=== PATIENT | female | born 1960 | race Caucasian/White ===

== ENCOUNTER 2017-06-27 09:24 | Emergency (ER) | payer BC ==
--- OUTSIDE RECORDS SUMMARY | 2017-06-27 10:00 | XMS REPORT ---
:1960 External Reference #:[id number] Author Organization [facility] 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 Infrastructure Engineer Unavailable Maya Mcdonough FNP Primary Care Physician Unavailable Payers Type Date Identification Numbers Payment Provider Subscriber Commercial Policy Number: [id number] Mya Harris PayID: [id number] [address] [address] [place] [address] Medigap Part B Expires: 2012 Policy Number: Mya Harris [id number] PayID: [id number] [address] [address] [place] [address] Medigap Part B Expires: 2011 Policy Number: Group Insurance Jhonatan Harris [id number] PayID: [id number] [address] [place] [address] Problems Date Description Provider Status Onset: 09/18/2011 Palpitations Jc Borden MD, PhD Active Onset: 05/05/2012 Paroxysmal supraventricular Aisha A Grella, ANP Active tachycardia Onset: 04/26/2013 Chest pain Aisha A Grella, ANP Active Onset: 08/09/2015 Paroxysmal atrial fibrillation Aisha A Grella, ANP Active Onset: 08/09/2015 Transient cerebral ischemia Aisha A Grella, ANP Active Onset: 08/09/2015 Mixed hyperlipidemia Aisha A Grella, ANP Active Onset: 09/01/2015 Orthostatic hypotension CALIN Guajardo Active Onset: 11/20/2015 Obstructive sleep apnea syndrome CALIN Guajardo Active Onset: 11/20/2015 Obesity CALIN Guajardo Active Family History Date Family Member(s) Problem(s) Comments Father Diabetes : (age 72 Years) Mother due to Congestive Heart Failure Mother due to COPD () First Sister Ovarian Cancer Social History Type Date Description Comments Lives With Diet Patient follows no dietary restrictions Occupation Currently Working Cigarette Use 1999 Quit Cigarette Use Pack Years - 20 ETOH Use Occasionally consumes alcohol Smoking Patient is a former smoker Daily Caffeine Patient consumes minimal amounts of caffeine Allergies, Adverse Reactions, Alerts Date Description Reaction Status Severity Comments 08/13/2011 Penicillin hives active 05/22/2015 Levaquin active Medications Medication Date Status Form Strength Qnty SIG Indications Ordering Provider Atenolol Active Tablets 50mg 30tabs 1 tab by I47.1 Emma 8 mouth [place] every day BORIS Rivas, BRAID CUTTER I48.0 I10 Magnesium 10/12/2016 Active Tablets 400(241.3mg) 180tabs Take 1 Tablet Emma Oxide mg By Mouth Twice Simon[place] A Day BORIS Rivas, BRAID CUTTER Nexium Active Capsules 40mg 30caps 1 po qd Unknown Wellbutrin Active Tablets 150mg 1 po bid Unknown SR ER 12HR Estrace Active Cream 0.1mg/GM insert Unknown one-half applicatorful vaginally once to twice per week as needed Metformin Active Tablets 500mg 1 po daily Unknown HCL Flecainide Active Tablets 100mg 180tabs take 1 tablet Sameer M. Acetate by mouth every Davidenko, 12 hours M.D., [facility] Eliquis Active Tablets 5mg 180tabs Take 1 Tablet Sameer M. By Mouth Twice Davidenko, Daily M.D., [facility] Atenolol 04/06/2016 Hx Tablets 25mg 90tabs take 1 tablet I Sameer M. - by mouth every 4 Davidenko, 06/24/2017 evening 7 M.D., [facility] . 1 I48.0 I10 Midodrine HCL 08/30/2015 Hx Tablets 2.5mg 60tabs 1 tab by I95.1 [place] mouth twice MD Rohit a day at 07 and 3 pm. Propafenone HCL 08/06/2015 Hx Caps ER 225mg 60caps 1 by mouth [place] ER 12HR twice a day MD Rohit Xarelto 08/06/2015 Hx Tablets 20mg 30tabs 1 by mouth [place] every day MD Rohit Magnesium Oxide 07/24/2015 Hx Tablets 400(240Mg 60tabs 1 by mouth [place] ) mg twice daily MD Rohit Atenolol 05/22/2015 - Hx Tablets 25mg 90tabs 1 by mouth I95.1 [place] 02/21/2016 every day MD Rohit Atenolol 12/02/2011 - Hx Tablets 25mg 90tabs Take 2 I47.1 Jc L 04/06/2016 Tablet By Suha, Mouth Once , PhD Daily, Take First Dose At Night as Directed I48.0 Seroquel Hx Tablets 100mg 1 Tab po hs Unknown Wellbutrin SR Hx Tablets ER 150mg 60ta 1 po bid Unknown 12HR bs Multivitamins Hx Tablets 1 po qd Unknown Plavix Hx Tablets 75mg 90ta 1 po qd Unknown bs Cymbalta Hx Caps DR Part 30mg 1 cap po qd Unknown Multivitamins Hx Capsules 1 by mouth Unknown every day Magnesium-Oxide Hx Tablets 400(241.3 180t 1 by mouth Emma mg) mg abs twice a day Luli Rivas, MSN, BRAID CUTTER Klonopin Hx Tablets 0.5mg one po tid nick Contrerasn Flecainide Hx Tablets 100mg 60ta Take 1 Edsno Contreras bs Tablet By Mouth Every 12 Hours Meloxicam Hx Tablets 7.5mg as directed Unknown 1 po daily Atenolol - Hx Tablets 25mg Take 1/2 I48 Unknown 02/21/2016 Tab By .0 Mouth Every Day Flaxseed Oil Hx Capsules 1000mg 1 po qd Unknown Zantac Hx Tablets 150mg 1 tab every Unknown day every morning Vital Signs Date Vital Result Comment 06/24/2017 BP Systolic Sitting Left Arm 142 mmHg BP Diastolic Sitting Left Arm 80 mmHg Heart Rate 72 /min Respiratory Rate 18 /min Height 63 inches 5'3" Weight 231.00 lb BMI (Body Mass Index) 40.9 kg/m2 BSA (Body Surface Area) 2.06 m2 [place] body weight in kilograms 52 05/25/2017 BP Systolic Sitting Left Arm 118 mmHg BP Diastolic Sitting Left Arm 84 mmHg Heart Rate 64 /min Respiratory Rate 16 /min Height 63 inches 5'3" Weight 232.00 lb BMI (Body Mass Index) 41.1 kg/m2 BSA (Body Surface Area) 2.06 m2 [place] body weight in kilograms 52 10/19/2016 BP Systolic Sitting Left Arm 110 mmHg BP Diastolic Sitting Left Arm 74 mmHg Heart Rate 68 /min Respiratory Rate 16 /min Height 63 inches 5'3" Weight 224.00 lb BMI (Body Mass Index) 39.7 kg/m2 BSA (Body Surface Area) 2.03 m2 [place] body weight in kilograms 52 04/17/2016 BP Systolic Sitting Left Arm 122 mmHg BP Diastolic Sitting Left Arm 78 mmHg Heart Rate 77 /min Respiratory Rate 16 /min Height 63 inches 5'3" Weight 216.00 lb BMI (Body Mass Index) 38.3 kg/m2 BSA (Body Surface Area) 2.00 m2 04/06/2016 BP Systolic Sitting Left Arm 118 mmHg BP Diastolic Sitting Left Arm 84 mmHg Heart Rate 61 /min Respiratory Rate 16 /min Height 63 inches 5'3" Weight 216.00 lb BMI (Body Mass Index) 38.3 kg/m2 BSA (Body Surface Area) 2.00 m2 02/21/2016 BP Systolic Sitting Left Arm 120 mmHg BP Diastolic Sitting Left Arm 86 mmHg Heart Rate 56 /min Respiratory Rate 16 /min Height 63 inches 5'3" Weight 214.00 lb BMI (Body Mass Index) 37.9 kg/m2 BSA (Body Surface Area) 1.99 m2 11/19/2015 BP Systolic Sitting Left Arm 118 mmHg BP Diastolic Sitting Left Arm 65 mmHg Heart Rate 68 /min Respiratory Rate 16 /min Height 63 inches 5'3" Weight 219.00 lb BMI (Body Mass Index) 38.8 kg/m2 BSA (Body Surface Area) 2.01 m2 10/09/2015 BP Systolic Sitting Left Arm 154 mmHg BP Diastolic Sitting Left Arm 80 mmHg Heart Rate 74 /min Height 63 inches 5'3" Weight 222.00 lb BMI (Body Mass Index) 39.3 kg/m2 BSA (Body Surface Area) 2.02 m2 [place] body weight in kilograms 52 08/30/2015 BP Systolic Sitting Left Arm 112 mmHg standing 100/68 BP Diastolic Sitting Left Arm 72 mmHg standing 100/68 Heart Rate 82 /min Respiratory Rate 16 /min Height 63 inches 5'3" Weight 219.00 lb BMI (Body Mass Index) 38.8 kg/m2 BSA (Body Surface Area) 2.01 m2 [place] body weight in kilograms 52 08/08/2015 BP Systolic Sitting Left Arm 106 mmHg BP Diastolic Sitting Left Arm 80 mmHg Heart Rate 72 /min Respiratory Rate 16 /min Height 63 inches 5'3" Weight 215.00 lb BMI (Body Mass Index) 38.1 kg/m2 BSA (Body Surface Area) 1.99 m2 07/24/2015 BP Systolic Sitting Right Arm 138 mmHg BP Diastolic Sitting Right Arm 84 mmHg Heart Rate 67 /min Respiratory Rate 16 /min Height 63 inches 5'3" Weight 220.00 lb BMI (Body Mass Index) 39.0 kg/m2 BSA (Body Surface Area) 2.01 m2 05/22/2015 BP Systolic Sitting Right Arm 136 mmHg BP Diastolic Sitting Right Arm 88 mmHg Heart Rate 80 /min Respiratory Rate 16 /min Height 63 inches 5'3" Weight 221.00 lb BMI (Body Mass Index) 39.1 kg/m2 BSA (Body Surface Area) 2.02 m2 05/25/2013 BP Systolic Sitting Right Arm 110 mmHg BP Diastolic Sitting Right Arm 82 mmHg Heart Rate 60 /min Respiratory Rate 16 /min Height 63 inches 5'3" Weight 223.00 lb BMI (Body Mass Index) 39.5 kg/m2 BSA (Body Surface Area) 2.03 m2 04/26/2013 BP Systolic Sitting Left Arm 124 mmHg BP Diastolic Sitting Left Arm 74 mmHg Heart Rate 60 /min Respiratory Rate 16 /min Height 63 inches 5'3" Weight 225.00 lb BMI (Body Mass Index) 39.9 kg/m2 BSA (Body Surface Area) 2.03 m2 09/19/2012 BP Systolic Sitting Right Arm 126 mmHg BP Diastolic Sitting Right Arm 70 mmHg Heart Rate 72 /min Respiratory Rate 16 /min Height 63 inches 5'3" Weight 226.00 lb BMI (Body Mass Index) 40.0 kg/m2 BSA (Body Surface Area) 2.04 m2 05/11/2012 BP Systolic Sitting Left Arm 120 mmHg BP Diastolic Sitting Left Arm 71 mmHg Heart Rate 56 /min Height 63 inches 5'3" Weight 220.00 lb BMI (Body Mass Index) 39.0 kg/m2 BSA (Body Surface Area) 2.01 m2 05/05/2012 BP Systolic Sitting Left Arm 122 mmHg BP Diastolic Sitting Left Arm 72 mmHg Heart Rate 64 /min Respiratory Rate 16 /min Height 63 inches 5'3" Weight 222.00 lb BMI (Body Mass Index) 39.3 kg/m2 03/03/2012 BP Systolic Sitting Right Arm 118 mmHg BP Diastolic Sitting Right Arm 84 mmHg Heart Rate 72 /min Respiratory Rate 16 /min Height 63 inches 5'3" Weight 219.00 lb BMI (Body Mass Index) 38.8 kg/m2 12/02/2011 BP Systolic Sitting Right Arm 140 mmHg BP Diastolic Sitting Right Arm 92 mmHg Heart Rate 80 /min Respiratory Rate 16 /min Height 63 inches 5'3" Weight 213.00 lb BMI (Body Mass Index) 37.7 kg/m2 09/18/2011 BP Systolic Sitting Right Arm 132 mmHg BP Diastolic Sitting Right Arm 86 mmHg Heart Rate 67 /min Respiratory Rate 16 /min Height 63 inches 5'3" Weight 209.00 lb BMI (Body Mass Index) 37.0 kg/m2 Results Test Date Test Result H/L Range Note Lymphocytes/leuk NFr 05/10/2017 Lymphocytes/leuk NFr 38.0 20.0-42.0 Bld Auto Bld Auto Monocytes/leuk NFr Bld 05/10/2017 Monocytes/leuk NFr Bld 5.5 4.3-13.2 Auto Auto Neutrophils # Bld Auto 05/10/2017 Neutrophils # Bld Auto 5.28 1.8-7.0 Neutrophils/leuk NFr 05/10/2017 Neutrophils/leuk NFr 54.1 40.4-72.8 Bld Auto Bld Auto Potassium SerPl-sCnc 05/10/2017 Potassium SerPl-sCnc 3.7 3.5-5.1 RDW RBC Auto 05/10/2017 RDW RBC Auto 44.8 3-47 RDW RBC Auto-Rto 05/10/2017 RDW RBC Auto-Rto 13.1 11.7-14.4 Serum carbon dioxide 05/10/2017 Serum carbon dioxide 30 21-32 measurement measurement Serum or plasma albumin 05/10/2017 Serum or plasma 3.7 3.4-5.0 measurement albumin measurement (mass/volume) (mass/volume) Serum or plasma 05/10/2017 Serum or plasma 68 45-117 alkaline phosphatase alkaline phosphatase measurement ( measurement (enzymatic activity/volume) Serum or plasma 05/10/2017 Serum or plasma 13 Low 15-37 aspartate aspartate aminotransferase aminotransferase measure measurement (enzymatic activity/volume) Serum or plasma calcium 05/10/2017 Serum or plasma 9.0 8.5-10.1 measurement calcium measurement (mass/volume) (mass/volume) Serum or plasma 05/10/2017 Serum or plasma 79 26-192 creatine kinase creatine kinase measurement (enzym measurement (enzymatic activity/volume) Serum or plasma 05/10/2017 Serum or plasma 0.7 0.6-1.3 creatinine measurement creatinine measurement (mass/volum (mass/volume) Serum or plasma glucose 05/10/2017 Serum or plasma 117 High 74-106 measurement glucose measurement (mass/volume) (mass/volume) Serum or plasma protein 05/10/2017 Serum or plasma 7.7 6.4-8.2 measurement protein measurement (mass/volume) (mass/volume) Serum or plasma total 05/10/2017 Serum or plasma total 0.3 0.2-1.0 bilirubin measurement bilirubin measurement (mass/ (mass/volume) Serum or plasma urea 05/10/2017 Serum or plasma urea 12 7-18 nitrogen measurement nitrogen measurement (mass/vo (mass/volume) Serum sodium 05/10/2017 Serum sodium 140 136-145 measurement measurement Capillary blood glucose 05/10/2017 Capillary blood 128 High 70-110 measurement by glucose measurement by glucometer glucometer (mass/volume) Alt SerPl-cCnc 05/10/2017 Alt SerPl-cCnc 24 12-78 Albumin/Glob SerPl 05/10/2017 Albumin/Glob SerPl 0.9 Anion Gap SerPl-sCnc 05/10/2017 Anion Gap SerPl-sCnc 7 Low 8-16 Automated blood 05/10/2017 Automated blood 0.03 0.0-0.1 basophil count basophil count (count/volume) (count/volume) Automated blood 05/10/2017 Automated blood 0.21 0.0-0.5 eosinophil count eosinophil count Automated blood 05/10/2017 Automated blood 38.8 36.0-46.1 hematocrit (volume hematocrit (volume fraction) fraction) Automated blood 05/10/2017 Automated blood 3.72 1.0-4.0 lymphocyte count lymphocyte count (number/volume) (number/volume) Automated blood 05/10/2017 Automated blood 281 155-360 platelet count platelet count Automated blood 05/10/2017 Automated blood 9.6 8.9-12.4 platelet mean volume platelet mean volume measurement measurement Automated erythrocyte 05/10/2017 Automated erythrocyte 32.6 25.9-32.7 mean corpuscular mean corpuscular hemoglobin hemoglobin (mass per erythrocyte) Globulin Ser Calc-mCnc 05/10/2017 Globulin Ser Calc-mCnc 4.0 1.9-4.3 Eosinophil/leuk NFr Bld 05/10/2017 Eosinophil/leuk NFr 2.1 0.0-6.6 Auto Bld Auto Chloride SerPl-sCnc 05/10/2017 Chloride SerPl-sCnc 103 98-107 Blood monocytes 05/10/2017 Blood monocytes 0.54 0.3-0.9 automated count automated count (number/volume) (number/volume) Blood leukocytes 05/10/2017 Blood leukocytes 9.8 3.1-10.7 automated count automated count (number/volume) (number/volume) Blood hemoglobin 05/10/2017 Blood hemoglobin 13.0 11.6-15.8 measurement measurement (mass/volume) (mass/volume) Blood erythrocytes 05/10/2017 Blood erythrocytes 3.99 3.90-5.40 automated count automated count (number/volume) (number/volume) Basophils/leuk NFr Bld 05/10/2017 Basophils/leuk NFr Bld 0.3 0.0-1.1 Auto Auto BUN/Creat SerPl 05/10/2017 BUN/Creat SerPl 17.1 Automated erythrocyte 05/10/2017 Automated erythrocyte 97.2 80.9-99.0 mean corpuscular volume mean corpuscular volume Automated erythrocyte 05/10/2017 Automated erythrocyte 33.5 30.8-34.3 mean corpuscular mean corpuscular hemoglobin hemoglobin concentration measurement (mass/volume) LDL Cholesterol Profile 10/19/2016 Cholesterol 201 mg/dL High <200 1, 2 Triglycerides 258 mg/dL High <150 1, 3 HDL Cholesterol 54 mg/dL >40 1, 4 LDL-Cholesterol 95 mg/dL < 100 1, 5 Basic Metabolic Panel 10/19/2016 Glucose 110 mg/dL High 74-106 1 BUN 17 mg/dL 7-18 1 Creatinine 0.7 mg/dL 0.6-1.3 1 Glom Filtration Rate, Estimate >60 mL/min >60 1 If >60 mL/min >60 1, 6 BUN/Creat 24.2 ratio 1 Sodium 142 mmol/L 136-145 1 Potassium 4.2 mmol/L 3.5-5.1 1 Chloride 107 mmol/L 98-107 1 Carbon Dioxide 27 mmol/L 21-32 1 Anion Gap 8 mEq/L 8-16 1 Calcium 8.8 mg/dL 8.5-10.1 1 LDL Cholesterol Profile 05/01/2016 Cholesterol 231 mg/dL High <200 7, 8 Triglycerides 217 mg/dL High <150 7, 9 HDL Cholesterol 54 mg/dL >40 7, 10 LDL-Cholesterol 134 mg/dL < 100 7, 11 Liver Function Tests 05/01/2016 Total Protein 7.4 g/dL 6.4-8.2 7 Albumin 3.6 g/dL 3.4-5.0 7 Globulin 3.8 g/dL 1.9-4.3 7 Alb/Glob 0.9 ratio 7 Bilirubin,Total 0.4 mg/dL 0.2-1.0 7 Bilirubin,Direct < 0.1 mg/dL 0.0-0.2 7 Bilirubin,Indirect 0.3 mg/dL 0.0-0.9 7 Sgot/Ast 12 U/L Low 15-37 7, 12 SGPT/Alt 29 U/L 12-78 7 Alkaline Phosphatase 71 U/L 45-117 7 CBS W/Automated Diff 05/01/2016 White Blood Count 7.8 K/uL 3.1-10.7 7 Red Blood Count 4.31 M/uL 3.90-5.40 7 Hemoglobin 13.8 gm/dL 11.6-15.8 7 Hematocrit 40.7 % 36.0-46.1 7 Mean Cell Volume 94.4 fl 80.9-99.0 7 Mean Corpuscular HGB 32.0 pg 25.9-32.7 7 Mean Corpuscular HGB Conc 33.9 g/dL 30.8-34.3 7 Platelet Count 324 K/uL 150-400 7 Red Cell Distri Width SD 42.6 fl 3-47 7 Red Cell Distri Width %CV 12.7 % 11.7-14.4 7 Mean Platelet Volume 9.9 fL 8.9-12.4 7 Neut% 57.9 % 40.4-72.8 7 Lymph % 33.5 % 20.0-42.0 7 Edmunds % 5.5 % 4.3-13.2 7 Eo% 2.7 % 0.0-6.6 7 Bas% 0.4 % 0.0-1.1 7 Neut# 4.52 K/uL 1.8-7.0 7 Lymph # 2.61 K/uL 1.0-4.0 7 Edmunds # 0.43 K/uL 0.3-0.9 7 Eos # 0.21 K/uL 0.0-0.5 7 Baso # 0.03 K/uL 0.0-0.1 7 Comprehensive Metabolic Panel 02/21/2016 Glucose 118 mg/dL High 74-106 13 BUN 16 mg/dL 7-18 13 Creatinine 0.8 mg/dL 0.6-1.3 13 Glom Filtration Rate, Estimate >60 mL/min >60 13 If >60 mL/min >60 13, 14 BUN/Creat 20.0 ratio 13 Sodium 142 mmol/L 136-145 13 Potassium 4.2 mmol/L 3.5-5.1 13 Chloride 104 mmol/L 98-107 13 Carbon Dioxide 29 mmol/L 21-32 13 Anion Gap 9 mEq/L 8-16 13 Calcium 8.7 mg/dL 8.5-10.1 13 Total Protein 7.7 g/dL 6.4-8.2 13 Albumin 3.8 g/dL 3.4-5.0 13 Globulin 3.9 g/dL 1.9-4.3 13 Alb/Glob 1.0 ratio 13 Bilirubin,Total 0.4 mg/dL 0.2-1.0 13 Sgot/Ast 13 U/L Low 15-37 13, 15 SGPT/Alt 25 U/L 12-78 13 Alkaline Phosphatase 72 U/L 45-117 13 Laboratory test finding 02/21/2016 Magnesium 2.2 mg/dL 1.8-2.4 13 Glycohemoglobin A1c 02/21/2016 Glycohemoglobin (A1c) 5.7 % 4.2-6.3 13, 16 eAG 117 mg/dL 13 Nocturnal Oximetry 11/28/2015 Low Oximetry 85 % Low 93-98 17 Fio2 21 21-100 17 Heart Rate 76 BPM 17 Duration Of Study 517 MINUTES 17 Total Time Below 88% 3.3 MINUTES 17 Continuous Oximetry 11/28/2015 Oximetry 96 % 93-98 17 Fio2 21 21-100 17 Heart Rate 78 BPM 17 Patient Status RESTING 17 Laboratory test finding 08/05/2015 Anion Gap 9 8-16 BUN/Creatinine Ratio 17.1 Blood Urea Nitrogen 12 7-18 Calcium Level 9.0 8.5-10.1 Carbon Dioxide Level 28 21-32 Chloride Level 104 98-107 Creatinine 0.7 0.6-1.3 Glucose Screen 124 High 74-106 Hematocrit 42.6 36.0-46.1 Hemoglobin 14.5 11.6-15.8 Magnesium Level 2.2 1.8-2.4 Mean Corpuscular Hemoglobin 32.4 25.9-32.7 Mean Corpuscular Hemoglobin Concent 34.0 30.8-34.3 Mean Corpuscular Volume 95.1 80.9-99.0 Mean Platelet Volume 9.8 8.9-12.4 Platelet Count 276 155-360 Potassium Level 4.0 3.5-5.1 RDW Coefficient of Variation 12.6 11.7-14.4 Red Blood Count 4.48 3.90-5.40 Sodium Level 141 136-145 White Blood Count 8.5 3.1-10.7 Laboratory test finding 08/04/2015 Urine Bacteria Few None Seen Urine Bilirubin Negative Negative Urine Blood Negative Negative Urine Clarity Clear Clear Urine Color Yellow Yellow Urine Culture No Growth Urine Epithelial Cells Many None Seen Urine Glucose (Ua) Negative Negative Urine Ketones Negative Negative Urine Leukocyte Esterase Large High Negative Urine Nitrite Negative Negative Urine Protein Negative Negative Urine RBC None Seen 0-2 Urine Specific [place] 1.015 1.010-1.030 Urine Urobilinogen 0.2 0.2-1.0 Urine pH 7.0 6.5-7.5 Laboratory test finding 08/03/2015 Estimated Average Glucose (eAG) 126 Hemoglobin A1c 6.0 4.2-6.3 Laboratory test finding 08/03/2015 Alanine Aminotransferase (Alt/SGPT) 35 12-78 Albumin 3.6 3.4-5.0 Albumin/Globulin Ratio 1.0 Alkaline Phosphatase 72 45-117 Aspartate Amino Transf (Ast/Sgot) 9 Low 15-37 Basophils # (Auto) 0.03 0.0-0.1 Basophils (%) (Auto) 0.3 0.0-1.1 Cholesterol Level 187 <200 Eosinophils # (Auto) 0.23 0.0-0.5 Eosinophils (%) (Auto) 2.5 0.0-6.6 Globulin 3.7 1.9-4.3 HDL Cholesterol 49 >40 LDL Cholesterol, Calculated 106 < 100 Lymphocytes # (Auto) 3.56 1.8-7.0 Lymphocytes (%) (Auto) 38.1 17.0-46.1 Monocytes # (Auto) 0.50 0.3-0.9 Monocytes (%) (Auto) 5.3 4.3-13.2 Neutrophils # (Auto) 5.03 1.8-7.0 Neutrophils (%) (Auto) 53.8 40.4-72.8 Red Cell Distribution Width 41.9 3-47 Thyroid Stimulating Hormone (TSH) 1.24 0.30-4.20 Total Bilirubin 0.5 0.2-1.0 Total Creatine Kinase 54 26-192 Total Protein 7.3 6.4-8.2 Triglycerides Level 160 High <150 Laboratory test 08/02/2015 Urine Culture Organism: Urethral finding Ligia Laboratory test 05/22/2015 Thyroid Stimulating 1.08 0.36-3.7 finding Hormone (TSH) 4 Laboratory test 05/20/2015 Alanine Aminotransferase 35 12-78 finding (Alt/SGPT) Albumin 3.6 3.4-5.0 Albumin/Globulin Ratio 1.0 Alkaline Phosphatase 71 45-117 Anion Gap 8 8-16 Aspartate Amino Transf (Ast/Sgot) 13 Low 15-37 BUN/Creatinine Ratio 18.5 Basophils # (Auto) 0.04 0.0-0.1 Basophils (%) (Auto) 0.5 0.0-1.1 Blood Urea Nitrogen 13 7-18 Calcium Level 8.2 Low 8.5-10.1 Carbon Dioxide Level 29 21-32 Chloride Level 104 98-107 Creatinine 0.7 0.6-1.3 Eosinophils # (Auto) 0.21 0.0-0.5 Eosinophils (%) (Auto) 2.8 0.0-6.6 Globulin 3.6 1.9-4.3 Glucose Screen 114 High 74-106 Hematocrit 38.0 36.0-46.1 Hemoglobin 13.1 11.6-15.8 Lymphocytes # (Auto) 3.44 1.8-7.0 Lymphocytes (%) (Auto) 46.1 17.0-46.1 Mean Corpuscular Hemoglobin 32.1 25.9-32.7 Mean Corpuscular Hemoglobin Concent 34.5 High 30.8-34.3 Mean Corpuscular Volume 93.1 80.9-99.0 Mean Platelet Volume 9.3 8.9-12.4 Monocytes # (Auto) 0.52 0.3-0.9 Monocytes (%) (Auto) 7.0 4.3-13.2 Neutrophils # (Auto) 3.26 1.8-7.0 Neutrophils (%) (Auto) 43.6 40.4-72.8 Platelet Count 253 155-360 Potassium Level 3.7 3.5-5.1 RDW Coefficient of Variation 12.4 11.7-14.4 Red Blood Count 4.08 3.90-5.40 Red Cell Distribution Width 41.5 3-47 Sodium Level 141 136-145 Total Bilirubin 0.3 0.2-1.0 Total Protein 7.2 6.4-8.2 White Blood Count 7.5 3.1-10.7 1 E78.2 I48.0 2 Reference Guidelines*: Desirable: ........... < 200 mg/dL Borderline High: ..... 200-239 mg/dL High: ................ >=240 mg/dL * The National Cholesterol Education Program (NCEP) 3 Reference Guidelines*: Normal: ............. < 150 mg/dL Borderline High: .... 150-199 mg/dL High: ............... 200-499 mg/dL Very High: .......... > 500 mg/dL * Source: National Cholesterol Education Program (NCEP) 4 Reference Guidelines*: Low HDL: ..... < 40 mg/dL Normal: ..... 40-60 mg/dL Desirable: ... > 60 mg/dL *The National Cholesterol Education Program(NCEP) 5 Reference Guidelines*: Optimal:........... <100 mg/dL Near Optimal....... 100-129 mg/dL Borderline High.... 130-159 mg/dL High............... 160-189 mg/dL Very High.......... >=190 mg/dL * Source: National Cholesterol Education Program (NCEP) 6 Note: Persistent reduction for 3 months or more in an eGFR <60 mL/min/1.73 m2 defines CKD. Patients with eGFR values >/=60 mL/min/1.73 m2 may also have CKD if evidence of persistent proteinuria is present. The original MDRD equation for estimated GFR is not valid for patients less than 18 years of age. Additional information may be found at www.kdoqi.org. 7 E78.2,I48.0 8 Reference Guidelines*: Desirable: ........... < 200 mg/dL Borderline High: ..... 200-239 mg/dL High: ................ >=240 mg/dL * The National Cholesterol Education Program (NCEP) 9 Reference Guidelines*: Normal: ............. < 150 mg/dL Borderline High: .... 150-199 mg/dL High: ............... 200-499 mg/dL Very High: .......... > 500 mg/dL * Source: National Cholesterol Education Program (NCEP) 10 Reference Guidelines*: Low HDL: ..... < 40 mg/dL Normal: ..... 40-60 mg/dL Desirable: ... > 60 mg/dL *The National Cholesterol Education Program(NCEP) 11 Reference Guidelines*: Optimal:........... <100 mg/dL Near Optimal....... 100-129 mg/dL Borderline High.... 130-159 mg/dL High............... 160-189 mg/dL Very High.......... >=190 mg/dL * Source: National Cholesterol Education Program (NCEP) 12 Values below the stated reference ranges of AST and ALT can be seen in normal populations. Clinical correlation is suggested. 13 I48.0 14 Note: Persistent reduction for 3 months or more in an eGFR <60 mL/min/1.73 m2 defines CKD. Patients with eGFR values >/=60 mL/min/1.73 m2 may also have CKD if evidence of persistent proteinuria is present. The original MDRD equation for estimated GFR is not valid for patients less than 18 years of age. Additional information may be found at www.kdoqi.org. 15 Values below the stated reference ranges of AST and ALT can be seen in normal populations. Clinical correlation is suggested. 16 Elevated levels of HbA1c suggest the need for more aggressive treatment of glycemia. The [place] [employer] recommends that a primary goal of therapy should be a HbA1c of <7% and that physicians should re-evaluate the treatment regimen in patients with HbA1c values consistently >8%. 17 OBSTRUCTIVE SLEEP APNEA Procedures Date CPT Code Description Status 06/17/2017 37024 Stress Test Interpre And Report Only Completed 06/17/2017 05619 Stress Test Physician Super Only Completed 06/17/2017 48147 Myocardial Imaging Tomographic Multiple Study At Rest Completed Or Stress 05/25/2017 75219 EKG-Tracing And Report Completed 05/11/2017 90753 EKG Interpretation And Report Only Completed 10/19/2016 68016 EKG-Tracing And Report Completed 04/13/2016 45210 Stress Test Interpre And Report Only Completed 04/13/2016 67685 Stress Test Physician Super Only Completed 04/13/2016 82752 Myocardial Imaging Tomographic Multiple Study At Rest Completed Or Stress 04/06/2016 74031 EKG-Tracing And Report Completed 02/21/2016 57513 EKG-Tracing And Report Completed 10/18/2015 78128 Event Monitor Inter/Review Only Completed 08/30/2015 14688 EKG-Tracing And Report Completed 08/08/2015 88883 EKG-Tracing And Report Completed 08/07/2015 58575 ECHO Transthoracic Inc Performance Continuous Completed Electrocardio 08/01/2015 69913 Event Monitor Inter/Review Only Completed 07/24/2015 10676 EKG-Tracing And Report Completed 05/22/2015 00128 EKG-Tracing And Report Completed 05/25/2013 70083 Removal Of Implantable, Patient Activated Cardiac Event Completed Recorder 05/25/2013 99952 Implantable Loop Recorder System Inc. Heart Rhythm Completed Derived Data 04/28/2013 58444 Stress Test Interpre And Report Only Completed 04/28/2013 01099 Stress Test Physician Super Only Completed 04/28/2013 00008 Stress Test Physician Super Only Completed 04/28/2013 54547 Myocardial Imaging Tomographic Multiple Study At Rest Completed Or Stress 04/18/2013 73636 Implantable Loop Recorder System [employer]. Heart Rhythm Completed Derived Data 04/18/2013 51593 Implantable Loop Recorder System [employer]. Heart Rhythm Completed Derived Data 04/04/2013 39628 Implantable Loop Recorder [employer]. Heart Rhythm Completed Derived Data 04/04/2013 23444 Implantable Loop Recorder System [employer]. Heart Rhythm Completed Derived Data 12/13/2012 36287 Implantable Loop Rec[employer] Heart Rhythm Completed Derived Data 12/13/2012 86381 Implantable Loop Recorder [employer] Heart Rhythm Completed Derived Data 11/01/2012 35822 Interrog. Device Icd Remote Completed 11/01/2012 82261 Interrog. Device Icd Remote Completed 11/01/2012 85585 Implantable Loop Recorder [employer] Heart Rhythm Completed Derived Data 11/01/2012 55085 Implantable Loop Rec[employer] Heart Rhythm Completed Derived Data 09/19/2012 36400 EKG-Tracing And Report Completed 09/13/2012 77503 Implantable Loop Rec[employer] Heart Rhythm Completed Derived Data 09/13/2012 00479 Implantable Loop Recorder System [employer] Heart Rhythm Completed Derived Data 09/13/2012 78103 Interrog. Device Icd Remote Completed 09/13/2012 89921 Interrog. Device Icd Remote Completed 08/22/2012 18423 Interrog. Device Icd Remote Completed 08/22/2012 73276 Implantable Loop Recorder System [employer] Heart Rhythm Completed Derived Data 08/02/2012 65843 Interrog. Device Icd Remote Completed 08/02/2012 73220 Interrog. Device Icd Remote Completed 08/02/2012 87878 Implantable Loop Recorder [employer] Heart Rhythm Completed Derived Data 08/02/2012 42008 Implantable Loop Rec[employer] System [employer] Heart Rhythm Completed Derived Data 07/01/2012 34424 Implantable Loop Recorder System [employer] Heart Rhythm Completed Derived Data 07/01/2012 23285 Interrog. Device Icd Remote Completed 06/14/2012 87772 Interrog. Device Icd Remote Completed 06/14/2012 01875 Interrog. Device Icd Remote Completed 06/14/2012 81268 Implantable Loop Recorder System [employer] Heart Rhythm Completed Derived Data 06/14/2012 37088 Implantable Loop Recorder [employer] Heart Rhythm Completed Derived Data 05/20/2012 36622 Implanation Of Cardiac Event Recorder Completed 03/18/2012 10220 Holter Monitor 24HR Inter/Report Completed 12/14/2011 05707 Holter Monitor 24HR Inter/Report Completed 09/18/2011 71337 EKG-Tracing And Report Completed 09/18/2011 33887 Event Monitor Inter/Review Only Completed 08/20/2011 55396 ECHO [employer] Performance Continuous Completed Electrocardio 08/12/2011 37957 Holter Monitor 24HR Inter/Report Completed 08/12/2011 27377 EKG Interpretation And Report Only Completed 08/12/2011 67145 EKG Interpretation And Report Only Completed 06/12/2011 46322 Echocardiogram Complete Completed 03/15/2011 Mammogram Completed 03/15/2011 Colonoscopy Completed 05/28/2010 47857 Anesthesia, Upper Abdomen Surgery Not Otherwise Spec Completed 05/22/2010 92204 EKG Interpretation And Report Only Completed 02/28/2010 09130 Cardiovascular Stress Test W/Interpretation & Completed Report 05/03/2007 12123 Stress Test Interpre And Report Only Completed 05/03/2007 57846 Stress Test Physician Super Only Completed 05/02/2007 70128 Doppler ECHO Color Flow Mapping Completed 05/02/2007 40293 Doppler Echocardiogram Complete Completed 05/02/2007 59455 Echocariogram 2D Complete Completed Encounters Type Date Location Provider CPT E/M Dx Office Visit 06/24/2017 9:40a Cardiology Office Emma Rivas, 13523 R07.9 MSN, BRAID CUTTER I10 I48.0 E78.2 G47.33 Office Visit 05/25/2017 10:00a Cardiology Office Emma Rockwell Evelyn, 09087 R07.9 MSN, BRAID CUTTER I48.0 E78.2 G47.33 Office Visit 10/19/2016 8:20a [place] [address] I48.0 Z79.01 G45.9 G47.33 E78.2 E66.09 Office Visit 04/17/2016 8:30a Cardiology Office Emma Marquesyder, 51638 I48.0 MSN, BRAID CUTTER G47.33 G45.9 E78.2 Office Visit 04/06/2016 11:00a Cardiology Office Emma Marquesyder, 64122 I48.0 MSN, BRAID CUTTER G47.33 R06.02 G45.9 E78.2 Office Visit 02/21/2016 8:00a Cardiology Office CALIN Guajardo 21515 I48.0 R00.2 I95.1 G45.9 E78.2 E66.09 Office Visit 11/19/2015 2:20p Cardiology Office CALIN Guajardo 39123 G47.33 I48.0 R00.2 I95.1 G45.9 E78.2 E66.09 Office Visit 10/09/2015 1:10p [place] [address] I48.0 I95.1 G45.9 E66.09 Office Visit 08/30/2015 11:00a Cardiology Office CALIN Guajardo 26415 I48.0 I95.1 R07.9 G45.9 E78.2 Office Visit 08/08/2015 11:00a Cardiology Office CALIN Guajardo 01079 I48.0 I47.1 R07.9 Z95.9 G45.9 E78.2 Office Visit 08/05/2015 1:09p [place] [address] R07.9 Office Visit 07/24/2015 10:40[place] [address] R00.2 Z95.9 R25.2 E66.09 Office Visit 05/22/2015 1:00p Cardiology Office CALIN Guajardo 28691 I47.1 R07.9 Office Visit 10/11/2014 10:04a [place] [address] 786.50 Office Visit 10/11/2014 10:54a [facility] George Gautam M.D. 30566 786.50 [facility] Office Visit 05/25/2013 10:30a Surgical Office Reji Shin 46285 786.50 Robbie Lee V45.00 780.2 Office Visit 05/25/2013 9:20a [place] [address] 786.50 785.1 427.0 Office Visit 04/26/2013 8:40a Cardiology Office Aisha Abdul, ANP 28846 786.50 427.0 Office Visit 09/19/2012 2:30p [place] [address] 427.0 785.1 786.50 Office Visit 08/22/2012 11:10a Cardiology Office Sameer Romo, 79652 786.50 Robbie, [facility] Office Visit 05/11/2012 9:30a Surgical Office Reji Shin 28618 780.2 Robbie Lee Office Visit 05/05/2012 8:30a Cardiology Office Aisha Abdul, ANP 47835 785.1 427.0 Office Visit 03/03/2012 9:20a Cardiology [place] 58121 427.0 Office Visit 12/02/2011 10:00a [place]iology [place] 89[address] 785.1 401.1 Office Visit 09/18/2011 10:00a Cardiology [place] 05359 786.51 785.1 435.9 Office Visit 08/12/2011 4:48p Cardiology [place] 67880 786.50 785.1 Plan of Care Future Appointment(s):07/28/2017 11:45 am - Osorio Bee MD at Cardiology Pveovs1906/24/2017 - Emma Rivas, MSN, FNPR07.9 Chest pain, unspecifiedComments:No changes. Monitor.I10 Essential (primary) hypertensionNew Medication:Atenolol 50 mgComments:I will increase her atenolol and will monitor. I have asked her to buy a BP monitor with the large adult cuff. Bring the home cuff in for the next visit. Bring a record of the home BP's to the nextvisit.I48.0 Paroxysmal atrial fibrillationNew Medication: Atenolol 50 mgComments:Monitor with the increase in BB.E78.2 Mixed hyperlipidemiaComments:No changes.G47.33 Obstructive sleep apnea (adult) ( pediatric)AllFollow up:Follow up visit in one month.
[2017-06-27 10:53] VITALS: BP 141/78
--- NOTE | 2017-06-27 11:10 | UC ---
Lower Extremity/Ankle HPI - HPI Summary HPI Summary: Patient is to the urgent care with left lower leg pain and swelling. She walked 5 mile a few days ago work, and then noticed some bruising now she's got increasing pain and swelling in her leg she's on Eliquis for A. fib and has had DVTs in the past - History of Current Complaint Chief Complaint: UCSkin Stated Complaint: LEFT LEG PAIN Time Seen by Provider: 06/27/17 11:00 Hx Obtained From: Patient Hx Last Menstrual Period: hysterectomy ?: No Onset/Duration: Sudden Onset, Lasting Days - 5, Worse Since - 1 day Severity Initially: Mild Severity Currently: Moderate Pain Intensity: 4 Pain Scale Used: 0-10 Numeric Aggravating Factor(s): Standing, Ambulation Alleviating Factor(s): Nothing Able to Bear Weight: Yes - Allergies/Home Medications Allergies/Adverse Reactions: Allergies Allergy/AdvReac Type Severity Reaction Status Date / Time levofloxacin [From Levaquin] Allergy Muscle Ache Verified 06/27/17 10:42 Penicillins Allergy Hives Verified 06/27/17 10:42 Home Medications: Home Medications Atenolol TAB* [Tenormin TAB* 50 MG] 50 mg PO DAILY 06/27/17 [History Confirmed 06/27/17] Esomeprazole(NF) [NexIUM(NF)] 40 mg PO DAILY 06/27/17 [History Confirmed ] Magnesium Oxide TAB* [MagOx 400 TAB*] 400 mg PO BID 06/27/17 [History Confirmed 06/27/17] buPROPion TAB* [Wellbutrin TAB*] 150 mg PO BID 06/27/17 [History Confirmed 06/27] PMH/Surg Hx/FS Hx/Imm Hx Previously Healthy: No Endocrine History: Diabetes Cardiovascular History: Atrial Fibrillation GI/ History: Gastroesophageal Reflux Psychological History: Depression - Surgical History Surgical History: Yes Surgery Procedure, Year, and Place: Left Leg Vein "Closed Off", ~2010; loop recorder placed 2011; removed LOOP RECORDER 2013;hysterectomy 2006;. C section 1991; GALLBLADDER 2011 - Family History Known Family History: Positive: Cardiac Disease, Hypertension, Diabetes - mother - Social History Occupation: Employed Full-time Lives: With Family Alcohol Use: Weekly Alcohol Amount: weekends Substance Use Type: None Smoking Status (MU): Former Smoker Type: Cigarettes Amount Used/How Often: 1/2 PPD Length of Time of Smoking/Using Tobacco: 27 Years Have You Smoked in the Last Year: No When Did the Patient Quit Smoking/Using Tobacco: 1999 Review of Systems Constitutional: Negative Skin: Bruising - left lower leg Eyes: Negative ENT: Negative Respiratory: Negative Cardiovascular: Negative Gastrointestinal: Negative Genitourinary: Negative Motor: Negative Neurovascular: Negative Musculoskeletal: Negative, Myalgia - left lower leg Neurological: Negative Psychological: Negative Is Patient Immunocompromised?: No All Other Systems Reviewed And Are Negative: Yes Physical Exam Triage Information Reviewed: Yes Appearance: Well-Appearing, No Pain Distress, Well-Nourished Vital Signs: Initial Vital Signs Temp 97.8 F 06/27/17 10:47 Pulse 60 06/27/17 10:47 Resp 16 06/27/17 10:47 BP 141/78 06/27/17 10:47 Pulse Ox 100 06/27/17 10:47 Vital Signs Reviewed: Yes Eye Exam: Normal Eyes: Positive: Conjunctiva Clear ENT Exam: Normal ENT: Positive: Normal ENT inspection, Hearing grossly normal. Negative: Nasal congestion, Nasal drainage, Tonsillar swelling, Tonsillar exudate, Trismus, Muffled voice, Hoarse voice, Dental tenderness, Sinus tenderness Dental Exam: Normal Neck exam: Normal Neck: Positive: Supple, Nontender Respiratory Exam: Normal Respiratory: Positive: Chest non-tender, No respiratory distress, No accessory muscle use Cardiovascular Exam: Normal Cardiovascular: Positive: RRR, Pulses Normal, Brisk Capillary Refill Musculoskeletal Exam: Normal Musculoskeletal: Positive: Strength Intact, ROM Intact, Edema @ - left lower leg Neurological Exam: Normal Neurological: Positive: Alert, Muscle Tone Normal Psychological Exam: Normal Psychological: Positive: Normal Response To Family, Age Appropriate Behavior Skin Exam: Normal Lower Extremity Course/Dx - Course Course Of Treatment: Patient was discharged from the urgent care with planned follow-up directly in the emergency department at [facility] - Differential Dx/Diagnosis Provider Diagnoses: Left lower leg swelling Discharge - Sign-Out/Discharge Documenting (check all that apply): Discharge - Discharge Plan Condition: Fair Disposition: HOME Discharge Disposition Comment: we're discharging you to go directly to the [facility] Referrals: ANTHONY Bartlett [Primary Care Provider] - Additional Instructions: r you're being discharged from the urgent care to go directly to the [facility] emergency department. You become an emergency department patient care. Where they will continue evaluation and assessment of your swollen left calf - Billing Disposition and Condition Condition: FAIR Disposition: HOME
== END 2017-06-27 11:19 | disposition home or self-care (01) ==
LOC: UCCORT 09:24
DX: R22.42 Localized swelling, mass and lump, left lower limb (principal); I48.91 Unspecified atrial fibrillation; Z79.01 Long term (current) use of anticoagulants; Z86.718 Personal history of other venous thrombosis and embolism; Z87.891 Personal history of nicotine dependence; Z88.0 Allergy status to penicillin; Z88.3 Allergy status to other anti-infective agents
CPT/HCPCS: 99212; G0463

== ENCOUNTER 2019-02-14 07:30 | Inpatient (IN) | payer OTHER ==
[~2019-02-14 07:30] MED LIST: Buffered Lidocaine 1% SYRIN* 1 ML/SYRINGE INTRADERM ONE; Dexamethasone IV* 4 MG/ML 1 ML (4 MG) IV SLOW PU ONE; DiMENhydriNATE IV* 50 MG/ML VIAL IV PUSH PRN; Famotidine IV* 10 MG/ML 2 ML (20 mg) IV ONE; HYDROmorphone INJ1* 1 MG/ML SYRINGE IV PRN; Lactated Ringers 1000 ML Bag* 1,000 ML IV SCH; Naloxone* 0.4 MG/ML 1 ML VIAL IV PRN; Ondansetron INJ* 2 MG/ML VIAL IV ONE; PROCHLORPERAZINE INJ 5 MG/ML 2 ML VIAL IV PRN; Scopolamine 1.5 mg* PATCH TRANSDERM ONE; fentaNYL* 50 MCG/ML 2 ML VIAL (100 MCG VIAL) IV PRN
[2019-02-14] MEDS ORDERED: Heparin VIAL(*) 5000 UNITS/ML VIAL (FIVE THOUSAND) ONE (10:26)
[2019-02-14] MEDS ORDERED: Clindamycin 900 MG/D5W BAG(*) 900 MG/50 ML BAG IVPB ONE (10:26)
[2019-02-14] MEDS ORDERED: Scopolamine 1.5 mg* PATCH ONE (10:26)
[2019-02-14] MEDS ORDERED: Dexamethasone IV* 4 MG/ML 1 ML (4 MG) ONE (10:26)
[2019-02-14] MEDS ORDERED: Ondansetron INJ* 2 MG/ML VIAL ONE ×2 (10:26→16:41)
[2019-02-14] MEDS ORDERED: Famotidine IV* 10 MG/ML 2 ML (20 mg) ONE (10:27)
[2019-02-14] MEDS ORDERED: Buffered Lidocaine 1% SYRIN* 1 ML/SYRINGE INTRADERM ONE (10:27)
[2019-02-14] MEDS ORDERED: KETAMINE HCL* 50 MG/ML 10 ML VIAL ONE (10:55)
[2019-02-14] MEDS ORDERED: fentaNYL* 50 MCG/ML 5 ML VIAL (250 MCG VIAL) ONE (10:55)
[2019-02-14] MEDS ORDERED: Midazolam* 1 MG/ML 5 ML VIAL (5 MG) ONE (10:55)
[2019-02-14] MEDS ORDERED: Rocuronium* 10 MG/ML VIAL ONE (10:57)
[2019-02-14] MEDS ORDERED: Methylene Blue 0.5 %* 50 MG/10 ML AMP IV ONE (11:44)
[2019-02-14] MEDS ORDERED: Bupivacaine 0.25% EPI 200,000* 30 ML SDV ONE (11:44)
[2019-02-14] MEDS ORDERED: Propofol* 10 MG/ML 20 ML BTL ONE (12:25)
[2019-02-14] MEDS ORDERED: Lidocaine 2% PF * 5 ML VIAL ONE (12:25)
[2019-02-14] MEDS ORDERED: PROCHLORPERAZINE INJ 5 MG/ML 2 ML VIAL ONE (12:25)
[2019-02-14] MEDS ORDERED: Acetaminophen IV 1GM/100ML * 100 ML ONE (12:59)
[2019-02-14] MEDS ORDERED: HYDROmorphone INJ1* 1 MG/ML SYRINGE ONE ×2 (13:12→16:42)
[2019-02-14] MEDS ORDERED: Acetaminophen ADULT LIQ* 650 MG/20.3 ML UDC PO PRN (14:29)
[2019-02-14] MEDS ORDERED: HYDROcodone/ACET. 7.5/325 LIQ* 15 ML UDC PO PRN (14:29)
[2019-02-14] MEDS ORDERED: HYDROmorphone INJ* 0.5 MG/0.5 ML SYRINGE IV SLOW PU PRN (14:29)
[2019-02-14] MEDS ORDERED: HYDROmorphone INJ1* 1 MG/ML SYRINGE IV SLOW PU PRN (14:29)
[2019-02-14] MEDS ORDERED: Ondansetron INJ* 2 MG/ML VIAL IV PRN (14:29)
--- NOTE | 2019-02-14 14:29 | BRIEFOPN ---
Brief Operative/Procedure Note - Operation Details Pre-Op Diagnosis: Morbid Obesity Post-Op Diagnosis: Same Procedures: Laparoscopic Jermaine-en-Y Gastric Bypass Surgeon(s)/Proceduralists: Dr. Hammond. Assist: TAMMY Valencia & Holden DILLON Anesthesia: GET Estimated Blood Loss: <50 cc IVF: 1500 cc Findings: As procedure above Specimen(s)/Culture(s) Description: None Complications: None
[2019-02-14] MEDS ORDERED: DiMENhydriNATE IV* 50 MG/ML VIAL ONE (14:31)
[2019-02-14] MEDS ORDERED: Metoprolol Tartrate IV* 1 MG/ML 5 ML VIAL IV PRN (14:37)
[2019-02-14] MEDS ORDERED: fentaNYL* 50 MCG/ML 2 ML VIAL (100 MCG VIAL) ONE (15:14)
[2019-02-14] MEDS: Lactated Ringers 1000 ML Bag* 1,000 ML IV SCH ×2 (16:20→22:58)
--- OUTSIDE RECORDS SUMMARY | 2019-02-14 16:41 | XMS REPORT | Continuity of Care Document ---
:1960 External Reference #:[id number] Author Name Chace Munoz M.D. (transmitted by agent of provider Sarah Muhammad) Address [address] [place] [id number] Care Team Providers Name Role Phone Lady Bingham CHEMICAL EQUIPMENT REPAIRER Care Team Information Pool Table Operator [phone] Osorio Bee MD Care Team Information Pool Table Operator [phone] Problems Description No Information Available Social History Type Date Description Comments Sex Unknown Tobacco Use Start: Unknown End: Used To Smoke Cigarettes But Unknown Quit. ETOH Use Current Alcohol Use - 1-3 Days A Week. Tobacco Use Start: Unknown End: Patient is a former smoker Unknown Recreational Drug Use Used Recreational Drugs In The Past Allergies, Adverse Reactions, Alerts Active Allergies Reaction Severity Comments Date Penicillin Urticaria 04/29/2016 Levaquin Severe joint pain 04/29/2016 Medications Active Medications SIG Qnty Indications Ordering Provider Date Atenolol take 1 tablet by Emma Rivas, 04/06/2016 25mg Tablets mouth every CHEMICAL EQUIPMENT REPAIRER evening Nexium 1 po qd 30caps Unknown 40mg Capsules DR Mujica 1 tab by mouth 180tabs Sameer Romo 5mg Tablets twice a day M.D Magnesium Oxide 1 by mouth twice 180tabs Emma Rivas, a day CHEMICAL EQUIPMENT REPAIRER 400(240Mg) mg Tablets Metformin HCL 1 po daily Unknown 500mg Tablets Flecainide Acetate Take 1 Tablet By 60tabs Osorio Bee MD Mouth Every 12 100mg Tablets Hours Wellbutrin SR Unknown 150mg Tablets ER 12HR Immunizations Description No Information Available Vital Signs Date Vital Result Comment 01/12/2019 1:54pm Weight 237.00 lb Height 64.75 inches 5'4.75" BMI (Body Mass Index) 39.7 kg/m2 BP Systolic 145 mmHg BP Diastolic 90 mmHg Heart Rate 63 /min O2 % BldC Oximetry 96 % Body Temperature 97.0 F Pain Level 0 11/24/2016 4:20pm Weight 228.38 lb Height 64.75 inches 5'4.75" BMI (Body Mass Index) 38.3 kg/m2 BP Systolic 138 mmHg BP Diastolic 83 mmHg Heart Rate 69 /min O2 % BldC Oximetry 94 % Body Temperature 98.2 F [place] Score 8 Pain Level 7 Results Description No Information Available Procedures Date Code Description Status 03/15/2015 59380671 Mammogram Completed 03/15/2010 53126373 Colonoscopy Completed Medical Devices Description No Information Available Encounters Description No Information Available Assessments Description No Information Available Plan of Treatment 05/04/2016 - Wendy yTler, NPJ34.3 Hypertrophy of nasal jiguaiqknsI14.83 DsgiiudH94.9 Sleep disorder, glhxiuznassE20.90 Acute sinusitis, unspecified Functional Status Description No Information Available Mental Status Description No Information Available Referrals Description No Information Available
--- OUTSIDE RECORDS SUMMARY | 2019-02-14 16:42 | XMS REPORT | Continuity of Care Document ---
:1960 External Reference #:[id number] Author Name Nani Hoang FNP (transmitted by agent of provider Huyen Henderson) Address [address] [place] [address] Care Team Providers Name Role Phone Maya Mcdonough FNP - Family Care Team Information Surgery Technician [phone] Problems Active Problems Provider Date Palpitations Gene Borden MD, PhD Onset: 09/18/2011 Paroxysmal supraventricular Grella, Aisha A., ANP Onset: 05/05/2012 tachycardia Chest pain Grella, Aisha A., ANP Onset: 04/26/2013 Paroxysmal atrial fibrillation Grella, Aisha A., ANP Onset: 08/09/2015 Transient cerebral ischemia Grella, Aisha A., ANP Onset: 08/09/2015 Mixed hyperlipidemia Grella, Aisha A., ANP Onset: 08/09/2015 Orthostatic hypotension Grella, Aisha A., ANP Onset: 09/01/2015 Obstructive sleep apnea syndrome Grella, Aisha A., ANP Onset: 11/20/2015 Obesity Grella, Aisha A., ANP Onset: 11/20/2015 Hyperlipidemia Emma Rivas, MSN, Onset: 03/29/2018 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 Social History Type Date Description Comments Sex Unknown Tobacco Use Start: Unknown End: Unknown Quit Cigarette Use Pack Years - 20 Smoking Status Reviewed: 12/28/18 Quit ETOH Use Occasionally consumes alcohol Tobacco Use Start: Unknown End: Unknown Patient is a former smoker Allergies, Adverse Reactions, Alerts Active Allergies Reaction Severity Comments Date Penicillin hives 08/13/2011 Levaquin 05/22/2015 Medications Active Medications SIG Qnty Indications Ordering Provider Date Proair HFA use 1-2 puffs 1units J98.01 [facility], 12/28/2018 108(90Base) every 4-6 hours Nani M., 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 mcg/Act Aerosol as needed for cough or sob Tessalon Perles use one cap 30caps J98.01 [facility], 12/28/2018 100mg three times a Nani M., 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 Capsules day as needed for cough Cefdinir 1 cap twice a 14caps R30.0 [facility], 12/28/2018 300mg Capsules day x 7 days Nani M., 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 Atenolol 1 tab by mouth 90tabs I47.1 Emma Rivas 06/24/2017 50mg Tablets every day BORIS Rockwell, 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 I48.0 I10 Magnesium Oxide Take 1 Tablet By 180tabs Emma Rivas 10/12/2016 400mg Mouth Twice A Day BORIS Rockwell, 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 Tablets Wellbutrin SR 1 po bid Unknown 150mg Tablets ER 12HR Eliquis Take 1 Tablet By 180tabs Sameer Romo, 5mg Tablets Mouth Twice Daily M.DArminda, [facility] Amiodarone HCL Take 1 Tablet By 30tabs Osorio Bee MD 200mg Mouth Every Day Tablets Omeprazole one daily Unknown 20mg Capsules DR History Medications Ranolazine ER Take 1 Tablet By 60tabs Osorio Bee MD 07/22/2018 - Unknown 500mg Mouth Twice A Day Tablets ER 12HR Immunizations Description No Information Available Vital Signs Date Vital Result Comment 12/28/2018 10:45am BP Systolic 138 mmHg BP Diastolic 82 mmHg Body Temperature 97.6 F Heart Rate 84 /min Respiratory Rate 20 /min Weight 236.38 lb O2 % BldC Oximetry 97 % Pain Level 6 11/23/2018 2:00pm BP Systolic Sitting Left Arm 132 mmHg BP Diastolic Sitting Left Arm 78 mmHg Heart Rate 70 /min Respiratory Rate 18 /min Height 63 inches 5'3" Weight 232.00 lb BMI (Body Mass Index) 41.1 kg/m2 BSA (Body Surface Area) 2.06 m2 [place]arte body weight in kilograms 52 kg O2 % BldC Oximetry 97 % Ejection Fraction 60% Results Test Date Facility Test Result H/L Range Note Urine Culture 12/28/2018 [facility] Urine Culture KLEBSIELLA Abnormal [address] [place]UM <[place] [address] NOTE> [phone] Quantity > 100,000 CFU/mL 2 Urine Culture URETHRAL KIM Quantity 10,000 - 50,000 <SEE NOTE> 3 Klebsiella Pneumoniae 12/28/2018 [facility] Nitrofurantoin [address] [place] [address] [phone] Trimethoprim/Sulfamethoxazole <=20 Susceptible Ampicillin >=32 Resistant Cefazolin <=4 Susceptible Ampicillin/Sulbactam >=32 Resistant Ciprofloxacin <=0.25 Susceptible Piperacillin/Tazobactam <=4 Susceptible Ceftazidime <=1 Susceptible Ceftriaxone <=1 Susceptible Cefepime <=1 Susceptible Levofloxacin <=0.12 Susceptible Imipenem <=0.25 Susceptible Gentamicin <=1 Susceptible Tobramycin <=1 Susceptible Urine Dipstick 12/28/2018 [facility] Inhouse Ua Color yellow Yellow Ua Clarity clear Clear Ua Leuko neg Negative Ua Nitrite neg Negative Ua Urobilinogen 0.2 mg/dl 0.2 - 1.0 E.U./dL Ua Protein neg Negative Ua PH 5.5 Low 6.5-7.5 Ua Blood neg Negative Ua Specific [place] 1.015 1.010-1.030 Ua Ketones neg Negative Ua Bilirubin neg Negative Ua Glucose neg Negative 1 KLEBSIELLA PNEUMONIAE 2 > 100,000 CFU/mL 3 10,000 - 50,000 CFU/mL Procedures Date Code Description Status 11/23/2018 33895 EKG-Tracing And Report Completed 07/27/2018 58663 EKG-Tracing And Report Completed 03/15/2011 [id number] Mammogram Completed 03/15/2011 76506304 Colonoscopy Completed Medical Devices Description No Information Available Encounters Type Date Location Provider Dx Diagnosis Office Visit 12/28/2018 10:45a [facility] Nani Hoang R05 Cough M., 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 R30.0 Dysuria J98.01 Acute bronchospasm Office Visit 11/23/2018 Cardiology Osorio Bee, Z01.810 Encounter for 1:45p Office preprocedural cardiovascular examination I48.0 Paroxysmal atrial fibrillation Z79.01 watermaster (current) use of anticoagulants G47.33 Obstructive sleep apnea (adult) (pediatric) Office Visit 07/27/2018 1:15p Cardiology Office Osorio Bee, I48.0 Paroxysmal atrial MD fibrillation Z79.01 [facility] (current) use of anticoagulants G47.33 Obstructive sleep apnea (adult) (pediatric) E66.09 Other obesity due to excess calories Assessments Date Code Description Provider 12/28/2018 R05 Cough Nani Hoang, 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 12/28/2018 R30.0 Dysuria Nani Hoang, 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 12/28/2018 J98.01 Acute bronchospasm Nani Hoang, [facility] 11/23/2018 Z01.810 Preoperative cardiovascular Osorio Bee MD examination 11/23/2018 I48.0 Paroxysmal atrial fibrillation Osorio Bee MD 11/23/2018 Z79.01 watermaster (current) use of Osorio Bee MD anticoagulants 11/23/2018 G47.33 Obstructive sleep apnea (adult) Osorio Bee MD (pediatric) 07/27/2018 I48.0 Paroxysmal atrial fibrillation Osorio Bee MD 07/27/2018 Z79.01 [facility] (current) use of Osorio Bee MD anticoagulants 07/27/2018 G47.33 Obstructive sleep apnea (adult) Osorio Bee MD (pediatric) 07/27/2018 E66.09 Other obesity due to excess calories Osorio Bee MD 07/22/2018 I48.0 Paroxysmal atrial fibrillation Blade Sanchez PA 07/22/2018 R60.0 Localized edema Blade Sanchez PA 07/22/2018 Z79.01 [facility] (current) use of Blade Sanchez PA anticoagulants 07/22/2018 G47.33 Obstructive sleep apnea (adult) Blade Sanchez PA (pediatric) Plan of Treatment Future Appointment(s):02/24/2019 2:20 pm - Blade Sanchez PA at Cardiology Aajszi4012/28/2018 - Nani Hoang, [id number] CoughNew Xrays: Chest, 2 Views, Ordered: 12/28/18R30.0 DysuriaNew Medication:Cefdinir 300 mg - 1 cap twice a day x 7 daysComments:Drink plenty of fluids, rest, keep follow-up with PCP for next week. We will send urine for culture and call you with the jwijzjeE75.01 Acute bronchospasmNew Medication:Proair HFA 108(90 Base) mcg/Act - use 1-2 puffs every 4-6 hours as needed for cough or sobTessalon Perles 100 mg - use one cap three times a day as needed for coughComments:Use tessalon Perls and albuterol inhaler, if cough continues you should discuss this with you PCP atyour visit next week and possibly have a chest x-ray. Today your lungs are clear. Functional Status Description No Information Available Mental Status Description No Information Available Referrals Refer to Reason for Referral Status Appt Date Chace Munoz MD Patient had ablation on 11/04, patient still Scheduled 01/12 presents with cough and sore throat since ablation. Dr. Bee would like patient seen with in 2-3 weeks if possible. [address] [place] [address] [phone] Niurka Ackerman MD AFIB ABLATION CONSIDERATION Closed 08/24/2018 [address] [facility] [address], [address] [place], [place] [address] [phone]
[2019-02-14] MEDS: Metoprolol Tartrate IV* 1 MG/ML 5 ML VIAL IV SCH ×2 (18:07→23:56)
[2019-02-14] MEDS: Ketorolac INJ* 30 MG/ML 1 ML VIAL IV SCH ×2 (18:07→23:56)
[2019-02-14] MEDS: Heparin VIAL(*) 5000 UNITS/ML VIAL (FIVE THOUSAND) SUBCUT SCH (21:24)
[2019-02-14] MEDS: Famotidine IV* 10 MG/ML 2 ML (20 mg) IV SLOW PU SCH (21:25)
--- NOTE | 2019-02-14 21:57 | OP ---
CC: [facility]; Osorio Bee MD, [place], [place] * DATE OF OPERATION: 02/14/19 - ROOM #351 DATE OF : 62 SURGEON: Jhonatan Hammond MD PAPER TWISTER TENDER: TAMMY Bell ANESTHESIOLOGIST: Dr. Ontiveros. ANESTHESIA: General endotracheal. PRE-OP DIAGNOSIS: Clinically severe obesity. POST-OP DIAGNOSIS: Clinically severe obesity. OPERATIVE PROCEDURE: Laparoscopic Jermaine-en-Y gastric bypass. ESTIMATED BLOOD LOSS: Less than 50 mL. IV FLUIDS: 1100 mL crystalloid. SPECIMEN: None. DRAINS: None. COMPLICATIONS: None. COUNT: Instrument, needle, and sponge counts were correct. DESCRIPTION OF PROCEDURE: The patient was brought to the operating room and placed on the table supine. Sequential compression devices were placed on both lower extremities. General anesthesia was administered. The abdomen was prepped and draped in usual sterile fashion. A time-out was performed. Local anesthetic was infiltrated into the skin and soft tissue prior to making each incision. Entry to the abdomen was through a left upper quadrant incision accommodating a 12-mm optical trocar. After accessing the peritoneal cavity, carbon dioxide was insufflated to a pressure of 15 mmHg. Under direct visualization, 12-mm bladeless trocars were placed in the supraumbilical midline and right upper quadrant. A 5-mm bladeless trocar was placed in the right upper quadrant medially and left upper quadrant laterally. A Osmar liver retractor was placed percutaneously in the subxiphoid position and used to elevate the left lobe of the liver. There were some omental adhesions in the area of the umbilicus. These were taken down using LigaSure. Gastric anatomy appeared normal. Perigastric dissection was undertaken on the lesser curvature of the stomach at approximately the second crossing vein to enter the lesser sac. Then, with several firings of the Endo GUS stapler using wren cartridges, the gastric pouch was created approximating 15 to 30 mL volume. The staple lines were noted to be intact and hemostatic. Next, the omentum was retracted cephalad and this was divided down the midline with the LigaSure. Transverse colon was elevated and the ligament of Treitz was identified. Jejunum was measured out approximately 50 cm. At this point, the loop was sutured to the lateral staple line of the gastric pouch with interrupted 2-0 silks. A gastrojejunal anastomosis was created with the Endo GUS stapler with a 30-mm wren cartridge. The common gastroenterotomy was run close with 3-0 PDS suture. The loop was divided to the left of the anastomosis completing the anastomosis. The anastomosis was then tested with methylene blue solution instilled through an orogastric tube. No leak was identified. The Jermaine limb was then measured out to 75 cm and at this point, a functional end -to- side jejunojejunostomy was created with the Endo GUS stapler with 60-mm wren cartridge. Common enterotomy was run close with 3-0 PDS running it to and fro tying to itself. Anti-obstruction sutures of 3-0 silk were placed proximally and the mesenteric defect was closed with interrupted 3-0 silk in a [id number] fashion. After assuring hemostasis, Osmar liver retractor and ports were removed. Carbon dioxide was released. Incisions were closed with 4-0 Monocryl in subcuticular fashion and Vale-Flex was applied. The patient tolerated the procedure well, was extubated, transferred to Recovery in stable condition. [id number]/[facility] #: [id number] MIKE
[2019-02-15] MEDS: Lactated Ringers 1000 ML Bag* 1,000 ML IV SCH (06:00)
[2019-02-15] MEDS: Ketorolac INJ* 30 MG/ML 1 ML VIAL IV SCH ×3 (06:08→17:59)
[2019-02-15] MEDS: Heparin VIAL(*) 5000 UNITS/ML VIAL (FIVE THOUSAND) SUBCUT SCH ×3 (06:08→22:26)
[2019-02-15] MEDS: Metoprolol Tartrate IV* 1 MG/ML 5 ML VIAL IV SCH ×3 (06:08→17:58)
--- NOTE | 2019-02-15 09:37 | PN ---
Progress Note - Progress Note Date of Service: 02/15/19 Note: S: POD #1. Some pain, but only req'd Dilaudid x 1. (getting Toradol on scheduled basis). Slight nausea; no vomiting. Ambulating. No SOB. O: Vital Signs - 8 hr 02/15/19 02/15/19 02/15/19 03:23 04:11 07:00 Temperature 97.7 F 98.3 F Pulse Rate 69 72 Respiratory 17 18 Rate Blood Pressure 124/61 130/66 (mmHg) O2 Sat by Pulse 97 97 96 Oximetry 02/15/19 02/15/19 08:17 08:19 Temperature Pulse Rate Respiratory 20 Rate Blood Pressure (mmHg) O2 Sat by Pulse 96 Oximetry Intake and Output Last 24 Hours 02/13/19 02/14/19 02/15/19 02/16/19 06:59 06:59 06:59 06:59 Intake Total 3468 Output Total 500 400 Balance 2968 -400 Weight 230 lb Intake: IV Fluids 3468 LR 3468 Oral 0 Output: Urine 500 400 Other: Estimated Void Small # Voids 1 Gen: appears comfortable, sitting up in bed Heart: reg Lungs: clear Abd: +BS; lap sites ok; small areas of ecchymosis; soft; mild to moderate tenderness, ken LUQ and at incisions. A: s/p lap gastric bypass; doing well P: start bonnie clears
[2019-02-15] MEDS: Famotidine IV* 10 MG/ML 2 ML (20 mg) IV SLOW PU SCH ×2 (12:09→20:54)
[2019-02-15] MEDS: D5W 1/2 NS KCl 20 Meq 1000 ML* 1,000 ML IV SCH ×2 (14:38→20:58)
[2019-02-16] MEDS: Metoprolol Tartrate IV* 1 MG/ML 5 ML VIAL IV SCH ×2 (01:15→06:00)
[2019-02-16] MEDS: Ketorolac INJ* 30 MG/ML 1 ML VIAL IV SCH ×2 (01:19→06:06)
[2019-02-16] MEDS: D5W 1/2 NS KCl 20 Meq 1000 ML* 1,000 ML IV SCH (04:55)
[2019-02-16] MEDS: Heparin VIAL(*) 5000 UNITS/ML VIAL (FIVE THOUSAND) SUBCUT SCH (06:03)
[2019-02-16] MEDS: Famotidine IV* 10 MG/ML 2 ML (20 mg) IV SLOW PU SCH (08:08)
[2019-02-16 08:29] VITALS: BP 117/66
--- NOTE | 2019-02-16 10:06 | PN ---
Progress Note - Progress Note Date of Service: 02/16/19 Note: S: POD #2. Doing better. Pain minimal. Alex bonnie clears. Ambulating well. O: Vital Signs - 8 hr 02/16/19 02/16/19 02/16/19 03:04 06:00 08:11 Temperature 97.9 F Pulse Rate 66 65 Respiratory 17 17 Rate Blood Pressure 95/45 98/37 (mmHg) O2 Sat by Pulse 94 Oximetry 02/16/19 08:28 Temperature 97.4 F Pulse Rate 65 Respiratory 18 Rate Blood Pressure 117/66 (mmHg) O2 Sat by Pulse 96 Oximetry Intake and Output Last 24 Hours 02/14/19 02/15/19 02/16/19 02/17/19 06:59 06:59 06:59 06:59 Intake Total 3468 3760 Output Total 500 1750 Balance 2968 2010 Weight 230 lb Intake: IV Fluids 3468 2920 D5W 1/2 NS 20 meq KCL 1930 LR 3468 990 Oral 0 840 Output: Urine 500 1750 Other: Estimated Void Small # Voids 1 Heart: reg Lungs: clear Abd: lap sites ok; soft; mild incisional tenderness A: s/p lap gastric bypass P: ok for d/c; instructions reviewed
--- NOTE | 2019-02-16 10:46 | DS ---
CC: [place], [place] * DATE OF ADMISSION: 02/14/2019. DATE OF DISCHARGE: 02/16/2019. ATTENDING SURGEON: Dr. Jhonatan Hammond * (TAMMY Bell dictating). HOSPITAL COURSE: Please refer to admission history and physical and operative note for details. The patient was taken to the operating room on 02/14/2019 and underwent laparoscopic ?Jermaine-en-Y gastric bypass with Dr. Hammond. The surgery itself and postoperative course have been uneventful. As of the morning of discharge, she is tolerating adequate intake of bariatric clear liquids. Her pain has been well controlled. See separate progress note from the same date. Instructions were reviewed regarding diet, wound care, and activity. She has an appointment scheduled next week at the [facility] for Metabolic and Bariatric [facility]. She was instructed to resume her Eliquis as of 02/17/2019. DISCHARGE DISPOSITION AND CONDITION: She is discharged to home in good condition. TAMMY BELL [id number]/[facility] #: [id number] MTDD
[2019-02-17] MEDS ORDERED: Scopolamine PATCH Remove* 1 NOTE MISC PATCH OFF ONE (06:00)
== END 2019-02-16 12:00 | disposition home or self-care (01) | DRG 621 ==
LOC: AA 09:08 → SSU 14:29
PROVIDERS: ADMIT Surgery; ATTEND Surgery
PROC: 0D164ZA Bypass Stomach to Jejunum, Percutaneous Endoscopic Approach (ICD-10-PCS; principal; 2019-02-14 11:30)
DX: E66.01 Morbid (severe) obesity due to excess calories (principal); K21.9 Gastro-esophageal reflux disease without esophagitis; E78.5 Hyperlipidemia, unspecified; I10 Essential (primary) hypertension; F32.9 Major depressive disorder, single episode, unspecified; F41.9 Anxiety disorder, unspecified; E78.00 Pure hypercholesterolemia, unspecified; M19.90 Unspecified osteoarthritis, unspecified site; E11.43 Type 2 diabetes mellitus with diabetic autonomic (poly)neuropathy; K31.84 Gastroparesis; I48.0 Paroxysmal atrial fibrillation; G47.33 Obstructive sleep apnea (adult) (pediatric); R11.0 Nausea; Z68.41 Body mass index [BMI] 40.0-44.9, adult; Z86.73 Personal history of transient ischemic attack (TIA), and cerebral infarction without residual deficits; Z88.0 Allergy status to penicillin; Z88.1 Allergy status to other antibiotic agents; Z79.02 Long term (current) use of antithrombotics/antiplatelets; Z79.899 Other long term (current) drug therapy; Z90.710 Acquired absence of both cervix and uterus; Z90.722 Acquired absence of ovaries, bilateral; Z87.891 Personal history of nicotine dependence; Z85.828 Personal history of other malignant neoplasm of skin
CPT/HCPCS: 43644; A9270-GY; C1776; J0780; J1100; J1170; J1240; J1644; J1885; J2250; J2405; J2704; J3010; J3490